=== PATIENT | male | born 1960 | race Caucasian/White ===

== ENCOUNTER 2017-10-03 17:26 | Emergency (ER) | payer OTHER ==
[2017-10-03] MEDS: AUGMENTIN 875 MG TAB PO (18:00)
== END 2017-10-03 18:10 | disposition home or self-care (01) ==
LOC: M ED 17:26
DX: S60.572A Other superficial bite of hand of left hand, initial encounter (principal); W54.0XXA Bitten by dog, initial encounter; Y92.009 Unspecified place in unspecified non-institutional (private) residence as the place of occurrence of the external cause; Y99.0 Civilian activity done for income or pay; Z88.8 Allergy status to other drugs, medicaments and biological substances
CPT/HCPCS: 99283

== ENCOUNTER 2024-04-29 18:29 | Emergency (ER) | payer BC, OTHER ==
[~2024-04-29] VITALS: Ht 162.6 cm; Wt 88.6 kg
[~2024-04-29 18:29] MED LIST: ALLE180T33 PO; AUGM875T28 PO
[2024-04-29] MEDS: MORPHINE 4 MG/ML 1ML VIAL IV ONE (20:26)
[2024-04-29] MEDS: BOOSTRIX VACCINE (TETANUS/DIPHTH/ACEL. PERTUSSIS) 0.5ML SYR IM.IMMUN ONE (20:27)
[2024-04-29 20:37] LABS: BASO # 0.1 10^3/uL (0.0-0.2); BASO % 0.3 % (0.0-1.0); HEMATOCRIT 46.5 % (42.0-52.0); HEMOGLOBIN 15.8 g/dl (13.5-17.5); LYMPH # 1.2 10^3/uL (1.5-5.0); LYMPH % 5.8 % (24.0-44.0); MEAN CORPUSCULAR HEMOGLOBIN 31.5 pg (27.0-33.0); MEAN CORPUSCULAR VOLUME 92.8 fl (80.0-96.0); MONO # 1.4 10^3/uL (0.0-0.8); MONO % 6.8 % (2.0-8.0); NEUTROPHILS # 17.7 10^3/uL (1.5-8.5); NEUTROPHILS % 86.3 % (36.0-66.0); PLATELET COUNT, AUTOMATED 268 10^3/uL (150-450); RED BLOOD COUNT 5.01 10^6/uL (4.30-6.10); WHITE BLOOD COUNT 20.5 10^3/uL (4.0-10.0)
[2024-04-29] MEDS ORDERED: ISOVUE-370 76% 100ML VIAL As Ordered ONE (20:39)
[2024-04-29 21:07] LABS: BLOOD UREA NITROGEN 23 MG/DL (9-23); CALCIUM LEVEL 9.4 MG/DL (8.3-10.6); CARBON DIOXIDE LEVEL 26 MMOL/L (20-31); CHLORIDE LEVEL 105 MMOL/L (98-107); CREATININE FOR GFR 1.04 MG/DL (0.70-1.30); GLOMERULAR FILTRATION RATE > 60.0 (>49); GLUCOSE, FASTING 138 MG/DL (74-106); POTASSIUM SERUM 3.9 MMOL/L (3.5-5.1); SODIUM LEVEL 139 MMOL/L (136-145)
[2024-04-29] MEDS ORDERED: LIDOCAINE 1% MDV 20ML VIAL As Ordered ONE (22:18)
[2024-04-29] MEDS: LIDOCAINE 1% MDV 20ML VIAL SC ONE (22:20)
[2024-04-29] MEDS ORDERED: CLIN150C17 PO (23:49)
[2024-04-29] MEDS: CLINDAMYCIN 150MG CAPSULE PO ONE (23:55)
[2024-04-30] VITALS: BP 149/84; TEMP 97.8; O2SAT 97
== END 2024-04-30 00:31 | disposition home or self-care (01) ==
LOC: M ED 18:29 → EDBD 18:29 → M ED 04-30 00:31
DX: S02.2XXA Fracture of nasal bones, initial encounter for closed fracture (principal); S01.01XA Laceration without foreign body of scalp, initial encounter; S01.21XA Laceration without foreign body of nose, initial encounter; S20.219A Contusion of unspecified front wall of thorax, initial encounter; S50.311A Abrasion of right elbow, initial encounter; M25.511 Pain in right shoulder; Y92.9 Unspecified place or not applicable; Y93.9 Activity, unspecified; Y99.9 Unspecified external cause status; Y04.8XXA Assault by other bodily force, initial encounter; K21.9 Gastro-esophageal reflux disease without esophagitis; F10.10 Alcohol abuse, uncomplicated; Z23 Encounter for immunization; Z88.0 Allergy status to penicillin; Z88.8 Allergy status to other drugs, medicaments and biological substances; Z79.2 Long term (current) use of antibiotics
CPT/HCPCS: 12001; 12011; 70450; 70486; 71260; 72125; 73030; 73080; 73090; 74177; 80047; 80048; 85025; 90471; 90715; 93041; 96372; 96374; 99285; Q9967